=== PATIENT | female | born 1975 ===

== ENCOUNTER 2017-06-26 20:18 | Emergency (ER) | payer BC ==
--- NOTE | 2017-06-26 20:32 | UC ---
Complaint Female HPI - HPI Summary HPI Summary: Pt presents with vaginal pain, urinary pressure, and urinary frequency. She tells me that about 3-4 days ago she noticed she was having some vaginal discomfort and discharge in addition to urinary pressure/frequency. She hasn't had a UTI in 5-6 years. States she is going out of the country tomorrow afternoon and normally wouldn't have come in to be seen except she didn't want to feel this way while away. Denies fever, chills, recent illness, SOB, chest pain, abdominal pain, N/V/D/C - History Of Current Complaint Stated Complaint: UTI Time Seen by Provider: 06/26/17 20:21 Onset/Duration: Gradual Onset Timing: Constant Severity Initially: Mild Severity Currently: Mild Pain Intensity: 2 Pain Scale Used: 0-10 Numeric - Allergies/Home Medications Allergies/Adverse Reactions: Allergies Allergy/AdvReac Type Severity Reaction Status Date / Time Amoxicillin Allergy Rash Verified 06/26/17 20:29 Home Medications: Home Medications Control 06/26/17 [History] PMH/Surg Hx/FS Hx/Imm Hx Previously Healthy: Yes - Family History Known Family History: Positive: Unknown - Social History Occupation: Employed Full-time Lives: With Family Alcohol Use: Occasionally Substance Use Type: None Smoking Status (MU): Never Smoked Tobacco Review of Systems Constitutional: Negative Skin: Negative Respiratory: Negative Cardiovascular: Negative Gastrointestinal: Negative Genitourinary: Dysuria, Vaginal/Penile Discharge, Vaginal/Penile Pain Neurovascular: Negative Psychological: Negative All Other Systems Reviewed And Are Negative: Yes Physical Exam Triage Information Reviewed: Yes Appearance: Well-Appearing, Well-Nourished Vital Signs Reviewed: Yes Neck: Positive: Supple, Nontender, No Lymphadenopathy Respiratory: Positive: Chest non-tender, Lungs clear, Normal breath sounds, No respiratory distress, No accessory muscle use Cardiovascular: Positive: RRR, No Murmur, Pulses Normal Abdomen Description: Positive: Nontender, No Organomegaly, Soft. Negative: CVA Tenderness (R), CVA Tenderness (L), Distended, Guarding Bowel Sounds: Positive: Present Neurological: Positive: Alert Psychological: Positive: Age Appropriate Behavior Skin: Negative: rashes - Additional Comments Pelvic exam: External genitalia: No lesions. Nontender Vagina: Rugated, copious white thin and yellow discharge, mild fishy odor. Cervix: No motion tenderness, patent os with surrounding thin white and yellow discharge. No lesions. Uterus: Small, non-tender. Adnexae: No masses or tenderness bilaterally. Ovaries not palpated Complaint Female Dx - Course Course Of Treatment: Suspect BV with potential UTI vs contaminated catch. Treat with macrobid and flagyl. Avoid alcohol until flagyl is completed. Cultures of vaginal discharge and urine will be sent to the lab. - Differential Dx/Diagnosis Differential Diagnosis/HQI/PQRI: Cervicitis, Pelvic Inflammatory Disease, Sexually Transmitted Disease, Urinary Tract Infection Provider Diagnoses: Bacterial vaginosis. UTI Discharge - Discharge Plan Condition: Stable Disposition: HOME Prescriptions: Metronidazole [Flagyl 500 MG TAB] 500 mg PO BID #14 tab Nitrofurantoin Monohyd Macro [Macrobid] 100 mg PO BID #6 cap Patient Education Materials: Bacterial Vaginosis (ED), Urinary Tract Infection in Women (ED) Referrals: No Primary Care Phys,NOPCP [Primary Care Provider] - Additional Instructions: If you develop a fever, shortness of breath, chest pain, new or worsening symptoms - please call your PCP or go to the ED. Your blood pressure was high at todays visit. Please see your primary provider within 4 weeks for recheck and re-evaluation. Avoid alcohol while taking Flagyl as this can cause severe vomiting.
[2017-06-26] MEDS ORDERED: Nitrofurantoin Macrocrystals* 50 MG CAP PO ONE (21:01)
== END 2017-06-26 21:30 | disposition home or self-care (01) ==
LOC: UCEAST 20:18
DX: N39.0 Urinary tract infection, site not specified (principal); B95.1 Streptococcus, group B, as the cause of diseases classified elsewhere; N76.0 Acute vaginitis; Z87.440 Personal history of urinary (tract) infections; Z88.1 Allergy status to other antibiotic agents
CPT/HCPCS: 81003; 87086; 87480; 87491; 87510; 87591; 99202; A9270-GY; G0463

== ENCOUNTER 2017-12-03 20:11 | Emergency (ER) | payer BC ==
[2017-12-03 20:32] VITALS: BP 152/94
--- NOTE | 2017-12-03 21:04 | UC ---
Lower Extremity/Ankle HPI - HPI Summary HPI Summary: 42 y/o female presents to the urgent care c/o Left thumb nail pain s/p jamming a cardboard her nail since Monday12/01/2017. Pt states now it is infected and draining yellowish pus. Pain to touch is 5/10. Pt can move thumb w/o any difficulty. Pt denies numbness or tingling sensation, fever, SOB, chest pain, abdominal pain, N/V/D. She has not taking anything to alleviate symptoms. Pt is PCP allergic - History of Current Complaint Chief Complaint: UCSkin Stated Complaint: INFECTED THUMB Time Seen by Provider: 12/03/17 20:55 Hx Obtained From: Patient Hx Last Menstrual Period: [id number] Onset/Duration: Gradual Onset, Lasting Days - 3 days, Still Present, Worse Since - yesterday Severity Initially: Mild Severity Currently: Moderate Pain Intensity: 5 Pain Scale Used: 0-10 Numeric Aggravating Factor(s): Other - movement Alleviating Factor(s): Rest Able to Bear Weight: Yes - Risk Factors Gout Risk Factors: Negative DVT Risk Factors: Negative Septic Arthritis Risk Factor: Negative - Allergies/Home Medications Allergies/Adverse Reactions: Allergies Allergy/AdvReac Type Severity Reaction Status Date / Time amoxicillin Allergy Rash Verified 12/03/17 20:33 PMH/Surg Hx/FS Hx/Imm Hx Previously Healthy: Yes - Pt denies PMHX - Surgical History Surgical History: None - Family History Known Family History: Positive: Hypertension, Diabetes Family History: Dyslipidemia - Social History Occupation: Employed Full-time Lives: With Family Alcohol Use: Weekly Substance Use Type: None Smoking Status (MU): Never Smoked Tobacco Review of Systems Constitutional: Negative Skin: Rash - thumb red and draining pus, Other Eyes: Negative ENT: Negative Respiratory: Negative Cardiovascular: Negative Gastrointestinal: Negative Genitourinary: Negative Motor: Negative Neurovascular: Negative Musculoskeletal: Other: - left thumb pain s/p injuty w/ a carboard Neurological: Negative Psychological: Negative Is Patient Immunocompromised?: No All Other Systems Reviewed And Are Negative: Yes Physical Exam - Summary Physical Exam Summary: Vital Signs Reviewed: Yes General: well developed, well nourished female sitting in the examining table w/ o any apparent distress. Eyes: Positive: Conjunctiva Clear - PERRLA, EOMI ENT: Positive: Normal ENT inspection, Hearing grossly normal, Pharynx normal, TMs normal Neck: Positive: Supple, Nontender, No Lymphadenopathy Respiratory: Positive: Chest nontender, Lungs clear, Normal breath sounds Cardiovascular: Positive: RRR, No Murmur, Pulses Normal Abdomen Description: Positive: Nontender, No Organomegaly, Soft. Negative: CVA Tenderness (R), CVA Tenderness (L) Bowel Sounds: Positive: Present Musculoskeletal: Positive: Strength Intact, ROM Intact, No Edema Neurological Exam: Normal Psychological Exam: Normal Skin: Positive: rashes - medial aspect on left tumb w/ discrete break w/ surrounding erythema and tender to palpation and mild swelling, FROM of the left thumb, capillary refill brisk and sensation intact, pulses WNL. Triage Information Reviewed: Yes Vital Signs: Initial Vital Signs Temp 99.9 F 12/03/17 20:26 Pulse 64 12/03/17 20:26 Resp 16 12/03/17 20:26 BP 152/94 12/03/17 20:26 Pulse Ox 100 12/03/17 20:26 Lower Extremity Course/Dx - Course Course Of Treatment: 42 y/o female presents to the urgent care c/o Left thumb nail pain s/p jamming a cardboard her nail since Monday12/01/2017. Pt states now it is infected and draining yellowish pus. Pain to touch is 5/10. Pt can move thumb w/o any difficulty. Pt denies numbness or tingling sensation, fever, SOB , chest pain, abdominal pain, N/V/D. She has not taking anything to alleviate symptoms. Pt is PCP allergic. Hx obtained. Pt w/ a left Thumb paronychia on examination. - Differential Dx/Diagnosis Differential Diagnosis/HQI/PQRI: Fracture (Closed), Infection, Puncture Wound, Sprain, Other - paronychia Provider Diagnoses: 1- Left thumb paronychia Discharge - Discharge Plan Condition: Stable Disposition: HOME Prescriptions: Aluminum Sulf/Ca Acetate FABIANO* [[place] FABIANO*] 1 applic TOPICAL DAILY #1 box Bacitracin OINTMENT* 1 applic TOPICAL BID #1 tube Sulfamethox/Trimethoprim DS* [Bactrim DS 800/160 TAB*] 1 tab PO BID #13 tab Patient Education Materials: Paronychia (ED), Low-Sodium Diet (ED) Referrals: [facility] [Outside] - 3 Days Additional Instructions: 1-Please take full course of Antibiotic. 2-soak your thumb w. [place] pkts as directed, dry well and apply bacitrain oint as directed. 3-Avoid too much flexion w/ your thumb. 4-Please F/u with your PCP in 2-3 if not improvement of symptoms for further evaluation and treatment. 5-Your BP is elevated today. please decrease salt in your diet, monitor BP and if it continues to be elevated please f/u with your PCP for further management - Billing Disposition and Condition Condition: STABLE Disposition: Home
[2017-12-03] MEDS ORDERED: Sulfamethox/Trimethoprim DS 800/160* TAB PO ONE (21:06)
== END 2017-12-03 21:21 | disposition home or self-care (01) ==
LOC: UCEAST 20:11
DX: L03.012 Cellulitis of left finger (principal); Z88.0 Allergy status to penicillin; Z82.49 Family history of ischemic heart disease and other diseases of the circulatory system; Z83.3 Family history of diabetes mellitus; Z83.49 Family history of other endocrine, nutritional and metabolic diseases
CPT/HCPCS: 99212; A9270-GY; G0463